=== PATIENT | male | born 1945 | race Caucasian/White ===

== ENCOUNTER 2018-03-06 08:20 | Day surgery (SDC) | payer OTHER ==
[2018-03-01 11:51] LABS: Basophils # (auto) 0 uL; Basophils % (auto) 0.7 % (0.0-2.0); Eosinophils # (auto) 0.1 uL; Eosinophils % (auto) 1.8 % (0.0-7.0); Hematocrit 48.7 % (41.0-53.0); Hemoglobin 16.8 g/dL (13.5-17.5); Lymphocytes # (auto) 1.8 uL; Lymphocytes % (auto) 30.9 % (10.0-50.0); Mean Corpuscular Hgb Conc. 34.5 g/dL (32.0-36.0); Mean Corpuscular Volume 98.3 fL (80.0-100.0); Monocytes # (auto) 0.6 uL; Neutrophils # (auto) 3.3 uL; Neutrophils % (auto) 56.6 % (37.0-80.0); Platelet Count (auto) 184 10^3/uL (140-450); Red Blood Cells 4.95 10^6/uL (4.5-5.90); Red Cell Distribution Width 13.6 % (11.8-14.3); White Blood Cell 5.7 10^3/uL (4.4-10.8)
[2018-03-01 11:57] LABS: Partial Thromboplastin Time 27.1 sec (23.78-33.04); Prothrombin Time 10.7 sec (9.27-12.13); Urine Bacteria FEW /hpf (None Seen); Urine Blood Negative /uL (Negative); Urine Specific Gravity 1.018 (1.001-1.035); Urine WBC <1 /hpf (0 - 3)
[2018-03-01 12:08] LABS: Albumin 3.9 g/dL (3.4-5.0); BUN/Creatinine Ratio 15.5; Bilirubin, Total 0.8 mg/dL (0.2-1.0); Calcium 9.1 mg/dL (8.5-10.1); Potassium 3.2 mmol/L (3.5-5.1); Total Protein 7.4 g/dL (6.4-8.2)
[~2018-03-06] VITALS: Ht 177.8 cm; Wt 103.0 kg
[~2018-03-06 08:20] MED LIST: AMLO10TA2 PO; ASPI81TA27 PO; GABA-339 PO; LOSA100T33 PO; METF-370 PO; VENL150C PO
[2018-03-06] MEDS ORDERED: fentaNYL CITRATE 100 MCG/2 ML VL ONE ×2 (09:25→10:21)
[2018-03-06] MEDS ORDERED: LIDOCAINE 2% (LOCAL ANESTH.) PF 5ml SDV ONE (09:59)
[2018-03-06] MEDS ORDERED: PROPOFOL 10 MG/ML 20 ML IV ONE (09:59)
[2018-03-06] MEDS ORDERED: BUPIVACAINE 0.75% INJ 10ML MPV SDV IJ ONE ×2 (10:09→10:22)
[2018-03-06] MEDS ORDERED: NEOMYCIN-BACITRACIN-POLYM 15GM TOP OINT TOP ONE (10:09)
[2018-03-06] MEDS ORDERED: MIDAZOLAM HCL 1MG/1ML-2 ML VIAL ONE (10:21)
[2018-03-06] MEDS ORDERED: ONDANSETRON HCL 4 MG/2 ML VIAL IV ONE ×2 (10:30→11:45)
[2018-03-06] MEDS ORDERED: ceFAZolin 1GM VL ONE (10:35)
[2018-03-06] MEDS ORDERED: METOCLOPRAMIDE HCL 5MG/ml INJ 2ml VIAL IV ONE (11:45)
[2018-03-06] MEDS ORDERED: hydrALAZINE HCL 20 MG/ML VL IV PRN (11:45)
[2018-03-06] MEDS ORDERED: HYDROmorphone HCL 2 MG/ML VL IV PRN (11:45)
[2018-03-06] MEDS ORDERED: LABETALOL HCL 5 MG/ML 4ML SYRINGE IV PRN (11:45)
[2018-03-06] MEDS ORDERED: NALOXONE HCL 0.4 MG/ML VIAL IV PRN (11:45)
[2018-03-06] MEDS ORDERED: ePHEDrine SULFATE 50 MG/ML AMP IV PRN (11:45)
[2018-03-06 12:30] VITALS: BP 150/91
== END 2018-03-06 12:32 | disposition home or self-care (01) ==
LOC: SUR 08:20
PROVIDERS: ATTEND Podiatrist Foot & Ankle Surgery
DX: M20.12 Hallux valgus (acquired), left foot (principal); M21.612 Bunion of left foot; M21.622 Bunionette of left foot; E66.9 Obesity, unspecified; Z68.32 Body mass index [BMI] 32.0-32.9, adult; E11.9 Type 2 diabetes mellitus without complications; Z96.643 Presence of artificial hip joint, bilateral; Z98.890 Other specified postprocedural states; I10 Essential (primary) hypertension; G62.9 Polyneuropathy, unspecified; F43.10 Post-traumatic stress disorder, unspecified; Z79.82 Long term (current) use of aspirin; Z79.84 Long term (current) use of oral hypoglycemic drugs; Z79.899 Other long term (current) drug therapy; I82.409 Acute embolism and thrombosis of unspecified deep veins of unspecified lower extremity
CPT/HCPCS: 28110; 28296; 36415; 73620; 80053; 81001; 82962; 85025; 85610; 85730; C1713; C1769; J0690; J2250; J2405; J2704; J3010; J3490; L3260; J2001

== ENCOUNTER 2018-07-10 09:43 | Day surgery (SDC) | payer OTHER ==
[2018-07-09 11:52] LABS: Basophils # (auto) 0.1 uL; Eosinophils # (auto) 0.1 uL; Eosinophils % (auto) 1.7 % (0.0-7.0); Hematocrit 50.1 % (41.0-53.0); Lymphocytes # (auto) 1.9 uL; Lymphocytes % (auto) 28.3 % (10.0-50.0); Monocytes # (auto) 0.6 uL; Monocytes % (auto) 9.4 % (0.0-12.0); Neutrophils % (auto) 59.6 % (37.0-80.0); Nucleated Red Blood Cells % 0.2 %; Platelet Count (auto) 176 10^3/uL (140-450); Red Blood Cells 5.16 10^6/uL (4.5-5.90); Red Cell Distribution Width 12.9 % (11.8-14.3); White Blood Cell 6.6 10^3/uL (4.4-10.8)
[2018-07-09 12:04] LABS: INR 0.97 (0.9-1.15); Prothrombin Time 10.4 sec (9.27-12.13)
[2018-07-09 12:07] LABS: Albumin 3.9 g/dL (3.4-5.0); BUN/Creatinine Ratio 15.3; Potassium 3.2 mmol/L (3.5-5.1)
[2018-07-09 12:10] LABS: Bilirubin, Total 0.7 mg/dL (0.2-1.0); Total Protein 7.3 g/dL (6.4-8.2)
[~2018-07-10] VITALS: Ht 180.3 cm; Wt 99.3 kg
[~2018-07-10 09:43] MED LIST changes: +AMLO10TA12 PO; -AMLO10TA2 PO; +ATOR20TA50 PO; -VENL150C PO; +VENL150C2 PO
[2018-07-10] MEDS ORDERED: CLINDAMYCIN 600MG IV 50 ML IV ONE (10:31)
[2018-07-10] MEDS ORDERED: KETOROLAC TROMETH 30 MG/ML 1ML VIAL ONE (10:41)
[2018-07-10] MEDS ORDERED: ePHEDrine SULFATE 50 MG/ML AMP IV PRN (12:00)
[2018-07-10] MEDS ORDERED: HYDROmorphone HCL 2 MG/ML VL IV PRN (12:00)
[2018-07-10] MEDS ORDERED: MORPHINE SULFATE 4 MG/ML SYR/VIAL IV ONE (12:00)
[2018-07-10] MEDS ORDERED: LABETALOL HCL 5 MG/ML 4ML SYRINGE IV PRN (12:00)
[2018-07-10] MEDS ORDERED: MORPHINE SULFATE 4 MG/ML SYR/VIAL IV PRN (12:00)
[2018-07-10] MEDS ORDERED: MIDAZOLAM HCL 1MG/1ML-2 ML VIAL IV PRN (12:00)
[2018-07-10] MEDS ORDERED: KETOROLAC TROMETH 30 MG/ML 1ML VIAL IV ONE (12:00)
[2018-07-10] MEDS ORDERED: ONDANSETRON HCL 4 MG/2 ML VIAL IV ONE (12:00)
[2018-07-10] MEDS ORDERED: BUPIVACAINE 0.75% INJ 10ML MPV SDV IJ ONE (12:18)
[2018-07-10] MEDS ORDERED: fentaNYL CITRATE 100 MCG/2 ML VL ONE (12:45)
[2018-07-10] MEDS ORDERED: MIDAZOLAM HCL 1MG/1ML-2 ML VIAL ONE (12:46)
[2018-07-10] MEDS ORDERED: DEXAMETHASONE SOD PHOS 10MG/1ML VIAL INJ ONE (12:52)
[2018-07-10] MEDS ORDERED: PROPOFOL 10 MG/ML 20 ML IV ONE (13:12)
[2018-07-10 14:01] VITALS: BP 141/81
== END 2018-07-10 14:13 | disposition home or self-care (01) ==
LOC: SUR 09:43
PROVIDERS: ATTEND Podiatrist Foot & Ankle Surgery
DX: T84.84XA Pain due to internal orthopedic prosthetic devices, implants and grafts, initial encounter (principal); L90.5 Scar conditions and fibrosis of skin; I10 Essential (primary) hypertension; E11.40 Type 2 diabetes mellitus with diabetic neuropathy, unspecified; Z96.643 Presence of artificial hip joint, bilateral; Z98.890 Other specified postprocedural states; Z79.899 Other long term (current) drug therapy; Z79.82 Long term (current) use of aspirin; Z79.84 Long term (current) use of oral hypoglycemic drugs; Z87.891 Personal history of nicotine dependence; Y83.8 Other surgical procedures as the cause of abnormal reaction of the patient, or of later complication, without mention of misadventure at the time of the procedure; Y92.89 Other specified places as the place of occurrence of the external cause
CPT/HCPCS: 14040; 20680; 36415; 80053; 82962; 85025; 85610; 85730; J1100; J1885; J2250; J2704; J3010; J3490

== ENCOUNTER 2023-03-28 11:46 | Inpatient (IN) | payer OTHER ==
[~2023-03-28] VITALS: Ht 177.8 cm; Wt 89.4 kg
[2023-03-28] VITALS (24 sets, daily range): BP systolic 120–170; BP diastolic 53–86; PULSE 76–100; RESP 11–21; TEMP 97.2–98.2; O2SAT 94–97
[~2023-03-28 11:46] MED LIST changes: -AMLO10TA12 PO; +APIX5TAB PO; +ASPI-543 PO; -ASPI81TA27 PO; +CLOP75TA28 PO; +DULO60CA41 PO; -GABA-339 PO; -VENL150C2 PO
[2023-03-28] MEDS ORDERED: ceFAZolin 1GM/50ML 100 ML IV ONE (11:51)
[2023-03-28] MEDS ORDERED: LIDOCAINE 1% (LOCAL ANESTH.) PF 5ml SDV ONE (12:13)
[2023-03-28] MEDS ORDERED: LIDOCAINE 1% HCL (LOCAL ANESTH.) INJ 20ML MDV ONE (12:13)
[2023-03-28] MEDS ORDERED: BUPIVACAINE 0.25% INJ 50ML VIAL ONE (12:14)
[2023-03-28] MEDS ORDERED: HEPARIN SODIUM (PORCINE) 5000 UNITS/ML 1ML VIAL ONE ×2 (12:14→13:02)
[2023-03-28] MEDS ORDERED: GELATIN 1 SPONGE SIZE 100 TOP ONE (12:37)
[2023-03-28] MEDS ORDERED: THROMBIN (BOVINE) 5000 UNIT SOL VIAL ONE (12:37)
[2023-03-28] MEDS ORDERED: fentaNYL CITRATE 100 MCG/2 ML VL ONE (13:04)
[2023-03-28] MEDS ORDERED: MIDAZOLAM HCL 2MG/2ML 2ml VIAL (1mg/ml) ONE (13:04)
[2023-03-28] MEDS ORDERED: fentaNYL CITRATE 5 ML ONE (13:04)
[2023-03-28] MEDS ORDERED: MEPERIDINE HCL (25 MG/ML) 1ML VIAL ONE (13:05)
[2023-03-28] MEDS ORDERED: LIDOCAINE 2% JELLY 11ml (GLYDO) ONE (13:14)
[2023-03-28] MEDS ORDERED: hydrALAZINE HCL 20 MG/ML VL IV PRN ×3 (14:15→18:15)
[2023-03-28] MEDS ORDERED: HYDROmorphone HCL 2 MG/ML VL/or syr IV PRN (14:15)
[2023-03-28] MEDS ORDERED: ePHEDrine SULFATE 50 MG/ML AMP IV PRN (14:15)
[2023-03-28] MEDS ORDERED: LABETALOL HCL 5 MG/ML 4ML SYRINGE IV PRN (14:15)
[2023-03-28] MEDS ORDERED: ACCU-CHEK COMFORT CURVE STRIP VI ONE (14:15)
[2023-03-28] MEDS ORDERED: MIDAZOLAM HCL 2MG/2ML 2ml VIAL (1mg/ml) IV PRN (14:15)
[2023-03-28] MEDS ORDERED: ONDANSETRON HCL 4 MG/2 ML VIAL IV PRN ×2 (14:15→17:15)
[2023-03-28] MEDS ORDERED: MORPHINE SULFATE 4 MG/ML SYR/VIAL IV PRN (14:15)
[2023-03-28] MEDS ORDERED: DexAMETHasone SOD PHOS 10MG/1ML VIAL INJ ONE (14:43)
[2023-03-28] MEDS ORDERED: NITROGLYCERIN 0.4 MG SL TAB SL PRN (16:15)
[2023-03-28] MEDS ORDERED: MORPHINE SULFATE INJ 2 MG/ml SYRG IV PRN (16:15)
[2023-03-28] MEDS ORDERED: OXYCODONE W/ ACETAMINOPHEN 5/325MG TABLET PO PRN ×2 (16:15→16:30)
[2023-03-28] MEDS ORDERED: ONDANSETRON HCL 4 MG/2 ML VIAL IV ONE ×3 (16:25→16:40)
[2023-03-28] MEDS ORDERED: ROCURONIUM 10MG/ML 10ML VIAL IV ONE (16:37)
[2023-03-28] MEDS ORDERED: ETOMIDATE (2MG/ML) 20ML VIAL IV ONE (16:37)
[2023-03-28] MEDS ORDERED: ONDANSETRON HCL 4 MG/2 ML VIAL ONE (16:39)
[2023-03-28] MEDS ORDERED: hydrALAZINE HCL 20 MG/ML VL IV SCH (18:00)
[2023-03-28] MEDS: ACETAMINOPHEN 325 MG TAB PO PRN (18:31)
[2023-03-28] MEDS: HYDROcodone-ACET 5/325MG TAB PO PRN (19:54)
[2023-03-28] MEDS ORDERED: ATORVASTATIN 20 MG TAB PO SCH (22:00)
[2023-03-29] VITALS (53 sets, daily range): BP systolic 122–212; BP diastolic 65–134; PULSE 72–138; RESP 12–27; TEMP 97.4–98.5; O2SAT 89–96
[2023-03-29] MEDS: ACETAMINOPHEN 325 MG TAB PO PRN (00:47)
[2023-03-29] MEDS: HYDROcodone-ACET 5/325MG TAB PO PRN (02:05)
[2023-03-29 06:16] LABS: Basophils # (auto) 0 10 ^3/uL (0-0.2); Eosinophils # (auto) 0 10 ^3/uL (0-0.8); Hematocrit 52.7 % (41.0-53.0); Hemoglobin 17.7 g/dL (13.5-17.5); Monocytes # (auto) 0.9 10 ^3/uL (0-1.3)
[2023-03-29 06:19] LABS: Basophils % (auto) 0.1 % (0.0-2.0); Lymphocytes # (auto) 0.9 10 ^3/uL (0.4-5.4); Lymphocytes % (auto) 5.5 % (10.0-50.0); Mean Corpuscular Hemoglobin 31.4 pg (28.0-32.0); Mean Corpuscular Hgb Conc. 33.6 g/dL (32.0-36.0); Mean Corpuscular Volume 93.6 fL (80.0-100.0); Monocytes % (auto) 5.7 % (0.0-12.0); Neutrophils # (auto) 13.9 10 ^3/uL (1.6-8.6); Neutrophils % (auto) 88.7 % (37.0-80.0); Nucleated Red Blood Cells % 0.1 %; Red Blood Cells 5.62 10^6/uL (4.5-5.90); Red Cell Distribution Width 13.7 % (11.8-14.3); White Blood Cell 15.7 10^3/uL (4.4-10.8)
[2023-03-29 06:23] LABS: Chloride 103 mmol/L (98-107); Potassium 3.4 mmol/L (3.5-5.1); Sodium 137 mmol/L (136-145)
[2023-03-29 06:24] LABS: Anion Gap 8.5 (5-15); Calcium 9.7 mg/dL (8.5-10.1); Carbon Dioxide 25.5 mmol/L (20-30)
[2023-03-29 06:29] LABS: BUN/Creatinine Ratio 9.1 (10.0-20.0); Blood Urea Nitrogen 7 mg/dL (9-23); Glucose 166 mg/dL (74-106)
[2023-03-29] MEDS ORDERED: POTASSIUM EFFERVESENT TAB 25 MEQ PO ONE (08:45)
[2023-03-29] MEDS ORDERED: DULoxetine HCL 30 MG CAP PO SCH ×2 (10:00)
[2023-03-29] MEDS ORDERED: LOSARTAN POTASSIUM 50 MG TAB PO SCH ×2 (10:00)
[2023-03-29] MEDS ORDERED: FAMOTIDINE 20 MG TAB PO SCH (10:00)
[2023-03-29] MEDS ORDERED: CLOPIDOGREL BISULFATE 75 MG TAB PO SCH ×2 (10:00)
[2023-03-29] MEDS ORDERED: LOSARTAN POTASSIUM 25 MG TAB PO SCH (10:00)
[2023-03-29] MEDS ORDERED: HCTZ 25 MG TAB PO SCH ×2 (10:00)
[2023-03-29] MEDS ORDERED: cloNIDine HCL 0.1 MG TAB PO ONE (14:00)
[2023-03-29] MEDS ORDERED: LABE100T4 PO (14:39)
[2023-03-29] MEDS ORDERED: METOPROLOL TARTRATE 1MG/1ML-5ML VIAL IV ONE (14:45)
== END 2023-03-29 16:38 | disposition home or self-care (01) | DRG 39 ==
LOC: SUR 11:46 → UNDOADMOB 16:46 → TELE 16:46 → DOU IN ICU 17:12 → TELE 17:12 → UNDODISOB 03-29 16:38
PROVIDERS: ADMIT Surgery Vascular Surgery; ATTEND Surgery Vascular Surgery
PROC: 03UH0KZ Supplement Right Common Carotid Artery with Nonautologous Tissue Substitute, Open Approach (ICD-10-PCS; 2023-03-28)
PROC: 03UK0KZ Supplement Right Internal Carotid Artery with Nonautologous Tissue Substitute, Open Approach (ICD-10-PCS; 2023-03-28)
PROC: 03CK0ZZ Extirpation of Matter from Right Internal Carotid Artery, Open Approach (ICD-10-PCS; 2023-03-28)
PROC: 03CH0ZZ Extirpation of Matter from Right Common Carotid Artery, Open Approach (ICD-10-PCS; principal; 2023-03-28 13:07)
DX: I65.21 Occlusion and stenosis of right carotid artery (principal); E78.5 Hyperlipidemia, unspecified; I10 Essential (primary) hypertension
CPT/HCPCS: 36415; 80048; 82962; 85025; 86850; 86900; 86901; 87081; 96365; 96366; 96375; G0378; J0690; J1100; J2001; J2250; J2405; J3490

== ENCOUNTER 2023-04-30 06:08 | Inpatient (IN) | payer OTHER ==
[~2023-04-30] VITALS: Ht 177.8 cm; Wt 89.1 kg
[2023-04-30] VITALS (49 sets, daily range): BP systolic 103–220; BP diastolic 47–99; PULSE 75–125; RESP 9–26; TEMP 98; O2SAT 86–96
[~2023-04-30 06:08] MED LIST changes: -ASPI-543 PO; +LABE100T4 PO
[2023-04-30] MEDS ORDERED: ceFAZolin 1GM/50ML 100 ML IV ONE (06:25)
[2023-04-30] MEDS ORDERED: LIDOCAINE HCL (LOCAL ANESTH.) 0.5 % 50ML MDV IJ ONE (06:56)
[2023-04-30] MEDS ORDERED: LIDOCAINE 1% (LOCAL ANESTH.) PF 5ml SDV ONE (06:56)
[2023-04-30] MEDS ORDERED: HEPARIN SODIUM (PORCINE) 5000 UNITS/ML 1ML VIAL ONE (06:56)
[2023-04-30] MEDS ORDERED: BUPIVACAINE HCL 0.25% P/F 10 ML VIAL ONE (06:56)
[2023-04-30] MEDS ORDERED: SUCCINYLCHOLINE CHLORIDE 20 MG/ML 10ML VIAL IV ONE (06:57)
[2023-04-30] MEDS ORDERED: PROPOFOL 10 MG/ML 20 ML IV ONE (07:00)
[2023-04-30] MEDS ORDERED: fentaNYL CITRATE 100 MCG/2 ML VL ONE ×3 (07:46→08:56)
[2023-04-30] MEDS ORDERED: ROCURONIUM 10MG/ML 10ML VIAL IV ONE (07:47)
[2023-04-30] MEDS ORDERED: ePHEDrine SULFATE 50 MG/ML AMP ONE (07:49)
[2023-04-30] MEDS ORDERED: ONDANSETRON HCL 4 MG/2 ML VIAL ONE (07:49)
[2023-04-30] MEDS ORDERED: PHENYLEPHRINE HCL 10 MG/ML VL ONE (07:53)
[2023-04-30] MEDS ORDERED: hydrALAZINE HCL 20 MG/ML VL ONE (09:29)
[2023-04-30] MEDS ORDERED: HYDROmorphone HCL 2 MG/ML VL/or syr IV PRN (10:00)
[2023-04-30] MEDS ORDERED: NITROGLYCERIN 0.4 MG SL TAB SL PRN (10:00)
[2023-04-30] MEDS ORDERED: LABETALOL HCL 5 MG/ML 4ML SYRINGE IV PRN (10:00)
[2023-04-30] MEDS ORDERED: MEPERIDINE HCL (25 MG/ML) 1ML VIAL IV PRN (10:00)
[2023-04-30] MEDS ORDERED: MORPHINE SULFATE INJ 2 MG/ml SYRG IV PRN (10:00)
[2023-04-30] MEDS ORDERED: ONDANSETRON HCL 4 MG/2 ML VIAL IV PRN ×2 (10:00→18:00)
[2023-04-30] MEDS ORDERED: OXYCODONE W/ ACETAMINOPHEN 5/325MG TABLET PO PRN (10:15)
[2023-04-30 14:22] LABS: Basophils # (auto) 0 10 ^3/uL (0-0.2); Basophils % (auto) 0.4 % (0.0-2.0); Eosinophils # (auto) 0 10 ^3/uL (0-0.8); Eosinophils % (auto) 0.2 % (0.0-7.0); Hematocrit 48.6 % (41.0-53.0); Hemoglobin 16.6 g/dL (13.5-17.5); Lymphocytes # (auto) 0.9 10 ^3/uL (0.4-5.4); Lymphocytes % (auto) 9.1 % (10.0-50.0); Mean Corpuscular Hemoglobin 32.1 pg (28.0-32.0); Mean Corpuscular Hgb Conc. 34.1 g/dL (32.0-36.0); Mean Corpuscular Volume 94.1 fL (80.0-100.0); Monocytes # (auto) 0.5 10 ^3/uL (0-1.3); Monocytes % (auto) 5.2 % (0.0-12.0); Neutrophils # (auto) 8.6 10 ^3/uL (1.6-8.6); Neutrophils % (auto) 85.1 % (37.0-80.0); Red Blood Cells 5.16 10^6/uL (4.5-5.90); Red Cell Distribution Width 14.2 % (11.8-14.3); White Blood Cell 10.1 10^3/uL (4.4-10.8)
[2023-04-30 14:45] LABS: Anion Gap 7 (5-15); Carbon Dioxide 31 mmol/L (20-30); Chloride 101 mmol/L (98-107); Potassium 3.4 mmol/L (3.5-5.1); Sodium 139 mmol/L (136-145)
[2023-04-30] MEDS ORDERED: ACETAMINOPHEN 325 MG TAB PO PRN ×2 (14:45→15:00)
[2023-04-30 14:46] LABS: Calcium 9.4 mg/dL (8.5-10.1)
[2023-04-30 14:51] LABS: Glucose 117 mg/dL (74-106)
[2023-04-30 14:55] LABS: BUN/Creatinine Ratio 6.7 (10.0-20.0); Blood Urea Nitrogen < 5 mg/dL (9-23)
[2023-04-30] MEDS: hydrALAZINE HCL 20 MG/ML VL IV PRN ×2 (15:03→20:14)
[2023-04-30] MEDS: PROMETHAZINE HCL 25 MG/ML 1ML IV PRN (23:37)
[2023-05-01] VITALS (36 sets, daily range): BP systolic 114–228; BP diastolic 51–103; PULSE 95–125; RESP 12–22; TEMP 98.2–98.7; O2SAT 91–95
[2023-05-01] MEDS: hydrALAZINE HCL 20 MG/ML VL IV PRN (02:39)
[2023-05-01] MEDS: PROMETHAZINE HCL 25 MG/ML 1ML IV PRN (03:35)
== END 2023-05-01 13:34 | disposition home or self-care (01) | DRG 38 ==
LOC: SUR 06:08 → TELE 09:58 → ICU WEST 11:08
PROVIDERS: ADMIT Surgery Vascular Surgery; ATTEND Surgery Vascular Surgery
PROC: 03CL0ZZ Extirpation of Matter from Left Internal Carotid Artery, Open Approach (ICD-10-PCS; principal; 2023-04-30 07:30)
DX: I65.22 Occlusion and stenosis of left carotid artery (principal); I82.402 Acute embolism and thrombosis of unspecified deep veins of left lower extremity; E78.5 Hyperlipidemia, unspecified; I10 Essential (primary) hypertension; E11.9 Type 2 diabetes mellitus without complications; F41.9 Anxiety disorder, unspecified; F32.A Depression, unspecified; Z86.718 Personal history of other venous thrombosis and embolism; Z79.01 Long term (current) use of anticoagulants
CPT/HCPCS: 36415; 80048; 82962; 85025; 86850; 86900; 86901; 87081; G0378; J0330; J0690; J2405; J2704; J3490